=== PATIENT | female | born 1995 | race Caucasian/White ===

== ENCOUNTER 2018-01-21 18:17 | Emergency (ER) | payer MEDICAID ==
[~2018-01-21] VITALS: Ht 170.2 cm; Wt 93.0 kg
[2018-01-21 18:43] VITALS: Ht 170.2 cm; Wt 93.0 kg
[2018-01-21 22:45] VITALS: BP 119/72
== END 2018-01-21 22:45 | disposition home or self-care (01) ==
LOC: ED 18:17
DX: G43.909 Migraine, unspecified, not intractable, without status migrainosus (principal)
CPT/HCPCS: J1885; J2765